=== PATIENT | female | born 1980 | race Caucasian/White ===

== ENCOUNTER 2016-12-30 11:59 | Emergency (ER) | payer BC ==
[2016-12-30 12:05] VITALS: BP 142/88
--- NOTE | 2016-12-30 12:25 | EDM.PDOC ---
ED HPI GENERAL MEDICAL PROBLEM - General Chief Complaint: Abdominal Pain Stated Complaint: lower abdominal pain Time Seen by Provider: 12/30/16 12:15 Source of Information: Reports: Patient History Limitations: Reports: No Limitations - History of Present Illness INITIAL COMMENTS - FREE TEXT/NARRATIVE: Pain started around 9 pm last night. No worse w/ pallpation. Nagging pain. HISTORY AND PHYSICAL: History of present illness: [Patient comes to the emergency room complaining of left lower quadrant abdominal pain. Symptoms began around 9 PM last evening and have continued into today. Feels that she is worsening. Pain is to her LLQ and over suprapubic area. She describes the pain as a lot of pressure and a "nagging" sensation to her pelvic area. She has not taken any medication for her pain. Had a BM yesterday that was looser than usual. Had a small BM today that was also loose, and questions if she might be contipated. Denies fever and chills. No URI or sinus symptoms. No chest pain, SOA or difficulty breathing. No nausea or vomiting. Had decreased appetite today. No blood in her stools. No burning with urination or urinary frequency. No hematuria. She denies vaginal discharge and bleeding. No new sex partners. Has been in a monogamous relationship for the last 8 years. is at the bedside and states that it is very unusual for patient to seek medical treatment as she does not like to be in medical facilities or around doctors. History of 1 in 2006. ] Review of systems: As per history of present illness and below otherwise all systems reviewed and negative. Past medical history: As per history of present illness and as reviewed below otherwise noncontributory. Surgical history: As per history of present illness and as reviewed below otherwise noncontributory. Social history: No reported history of drug or alcohol abuse. Family history: As per history of present illness and as reviewed below otherwise noncontributory. Physical exam: HEENT: Atraumatic, normocephalic. Oral mucous membranes moist. throat clear. No lymphadenopathy or pain in neck w/ palpation. Lungs: Clear to auscultation, breath sounds equal bilaterally. Heart: S1S2, regular rate and rhythm. Abdomen: Bowel sounds are normoactive. Abdomen is thin and soft and without distention. She is tender over her left lower quadrant and suprapubic area. Otherwise nontender. No masses guarding or rebound. No right upper quadrant or right lower quadrant abdominal discomfort. Negative for costovertebral tenderness. Pelvis: Stable nontender. Genitourinary: Normal-appearing external genitalia. No cervical motion tenderness. Small amount of clear discharge from cervical os. Is tender to left adnexal area on by manual exam. No masses or adnexal enlargement appreciated. Rectal: Deferred. Extremities: Atraumatic, negative for cords or calf pain. Neurovascular unremarkable. Neuro: Awake, alert, oriented. Motor and sensory unremarkable throughout. Exam nonfocal. Diagnostics: [CBC, CMP, urinalysis, urine , amylase, lipase, lactic acid, CT abd/ pelvis w/ contrast] Therapeutics: [1 liter NS, Toradol 30mg IV, Zofran 4mg IV x2, Morphine 4mg IV] Impression: [Abdominal pain Left ovarian cyst] Plan: [CT abdomen and pelvis shows 5.6 cm x 4 cm x 3.8 cm left ovarian cyst. This is reviewed with patient. She will be discharged to home with instructions for anti -inflammatories, rest, pelvic rest and pain medications. She declines hydrocodone as it upsets her stomach. Rx is written for Tramadol 50 mg #30 sig 1 by mouth every 4-6 hours as needed for pain 0 refills. Strict return precautions are reviewed w/ patient. She is instructed to follow-up with local [facility] early next week. She is in agreement with today's plan. All of her questions are answered and concerns are addressed.] Definitive disposition and diagnosis as appropriate pending reevaluation and review of above. Lower Abdominal Pain Score (Numeric/FACES): 7 - Related Data Allergies Allergy/AdvReac Type Severity Reaction Status Date / Time No Known Allergies Allergy Verified 12/30/16 12:01 Home Meds: Home Meds . [No Known Home Meds] 12/30/16 [History] Past Medical History HEENT History: Reports: None Cardiovascular History: Reports: None Respiratory History: Reports: None Gastrointestinal History: Reports: None Neurological History: Reports: None Dermatologic History: Reports: None - Infectious Disease History Infectious Disease History: Reports: Chicken Pox - Past Surgical History HEENT Surgical History: Reports: None Cardiovascular Surgical History: Reports: None Female Surgical History: Reports: Section Social & Family History - Tobacco Use Smoking Status *Q: Former Smoker Used Tobacco, but Quit: Yes Month Tobacco Last Used: 10 ED ROS GENERAL - Review of Systems Review Of Systems: ROS reveals no pertinent complaints other than HPI. ED EXAM, GI/ABD - Physical Exam Exam: See Below Course - Vital Signs Last Recorded V/S: Last Vital Signs Temp 97.7 F 12/30/16 12:01 Pulse 74 12/30/16 12:01 Resp 18 12/30/16 12:01 BP 142/88 H 12/30/16 12:01 Pulse Ox 98 12/30/16 12:01 - Orders/Labs/Meds Orders: Active Orders 24 hr Category Date Time Status Abdomen Pelvis w Cont [CT] Stat Exams 12/30/16 13:34 Taken Labs: Laboratory Tests 12/30/16 12/30/16 12/30/16 Range/Units 12:25 12:25 12:34 WBC 6.64 (4.0-11.0) K/uL RBC 4.82 (4.30-5.90) M/uL Hgb 14.7 (12.0-16.0) g/dL Hct 42.4 (36.0-46.0) % MCV 88.0 (80.0-98.0) fL MCH 30.5 (27.0-32.0) pg MCHC 34.7 (31.0-37.0) g/dL RDW Std Deviation 41.7 (28.0-62.0) fl RDW Coeff of Melisa 13 (11.0-15.0) % Plt Count 222 (150-400) K/uL MPV 10.40 (7.40-12.00) fL Neut % (Auto) 71.3 (48.0-80.0) % Lymph % (Auto) 17.3 (16.0-40.0) % [place] % (Auto) 8.7 (0.0-15.0) % Eos % (Auto) 2.4 (0.0-7.0) % Baso % (Auto) 0.3 (0.0-1.5) % Neut # (Auto) 4.7 (1.4-5.7) K/uL Lymph # (Auto) 1.2 (0.6-2.4) K/uL [place] # (Auto) 0.6 (0.0-0.8) K/uL Eos # (Auto) 0.2 (0.0-0.7) K/uL Baso # (Auto) 0.0 (0.0-0.1) K/uL Nucleated RBC % 0.0 /100WBC Nucleated RBCs # 0 K/uL Lactate (0.20-2.00) mmol/L Sodium (136-146) mmol/L Potassium (3.5-5.1) mmol/L Chloride (98-110) mmol/L Carbon Dioxide (21-31) mmol/L BUN (6.0-23.0) mg/dL Creatinine (0.6-1.5) mg/dL Est Cr Clr Drug Dosing mL/min Estimated GFR (MDRD) ml/min Glucose (60-110) mg/dL Calcium (8.8-10.8) mg/dL Total Bilirubin (0.1-1.5) mg/dL AST (5-40) IU/L ALT (8-54) IU/L Alkaline Phosphatase (40-150) Total Protein (6.0-8.0) g/dL Albumin (3.5-5.0) g/dL Globulin (2.0-3.5) g/dL Albumin/Globulin Ratio (1.3-2.8) Amylase (10-90) U/L Lipase (7-80) U/L Urine Color YELLOW Urine Appearance CLEAR Urine pH 5.5 (5.0-8.0) Ur Specific [place] <= 1.005 (1.001-1.035) Urine Protein NEGATIVE (NEGATIVE) mg/dL Urine Glucose (UA) NEGATIVE (NEGATIVE) mg/dL Urine Ketones NEGATIVE (NEGATIVE) mg/dL Urine Occult Blood NEGATIVE (NEGATIVE) Urine Nitrite NEGATIVE (NEGATIVE) Urine Bilirubin NEGATIVE (NEGATIVE) Urine Urobilinogen 0.2 (<2.0) EU/dL Ur Leukocyte Esterase NEGATIVE (NEGATIVE) Urine RBC NONE SEEN (0-2/HPF) Urine WBC 0-1 (0-5/HPF) Ur Epithelial Cells MODERATE (NONE-FEW) Amorphous Sediment RARE (NEGATIVE) Urine Bacteria RARE (NEGATIVE) Urine HCG, Qual NEGATIVE (NEGATIVE) 12/30/16 12/30/16 Range/Units 12:34 12:34 WBC (4.0-11.0) K/uL RBC (4.30-5.90) M/uL Hgb (12.0-16.0) g/dL Hct (36.0-46.0) % MCV (80.0-98.0) fL MCH (27.0-32.0) pg MCHC (31.0-37.0) g/dL RDW Std Deviation (28.0-62.0) fl RDW Coeff of Melisa (11.0-15.0) % Plt Count (150-400) K/uL MPV (7.40-12.00) fL Neut % (Auto) (48.0-80.0) % Lymph % (Auto) (16.0-40.0) % [place] % (Auto) (0.0-15.0) % Eos % (Auto) (0.0-7.0) % Baso % (Auto) (0.0-1.5) % Neut # (Auto) (1.4-5.7) K/uL Lymph # (Auto) (0.6-2.4) K/uL [place] # (Auto) (0.0-0.8) K/uL Eos # (Auto) (0.0-0.7) K/uL Baso # (Auto) (0.0-0.1) K/uL Nucleated RBC % /100WBC Nucleated RBCs # K/uL Lactate 1.2 (0.20-2.00) mmol/L Sodium 137 (136-146) mmol/L Potassium 3.8 (3.5-5.1) mmol/L Chloride 109 (98-110) mmol/L Carbon Dioxide 21 (21-31) mmol/L BUN 9 (6.0-23.0) mg/dL Creatinine 0.9 (0.6-1.5) mg/dL Est Cr Clr Drug Dosing 77.01 mL/min Estimated GFR (MDRD) > 60.0 ml/min Glucose 102 (60-110) mg/dL Calcium 9.3 (8.8-10.8) mg/dL Total Bilirubin 0.6 (0.1-1.5) mg/dL AST 13 (5-40) IU/L ALT 10 (8-54) IU/L Alkaline Phosphatase 55 (40-150) Total Protein 7.3 (6.0-8.0) g/dL Albumin 4.2 (3.5-5.0) g/dL Globulin 3.1 (2.0-3.5) g/dL Albumin/Globulin Ratio 1.4 (1.3-2.8) Amylase 54 (10-90) U/L Lipase 18 (7-80) U/L Urine Color Urine Appearance Urine pH (5.0-8.0) Ur Specific [place] (1.001-1.035) Urine Protein (NEGATIVE) mg/dL Urine Glucose (UA) (NEGATIVE) mg/dL Urine Ketones (NEGATIVE) mg/dL Urine Occult Blood (NEGATIVE) Urine Nitrite (NEGATIVE) Urine Bilirubin (NEGATIVE) Urine Urobilinogen (<2.0) EU/dL Ur Leukocyte Esterase (NEGATIVE) Urine RBC (0-2/HPF) Urine WBC (0-5/HPF) Ur Epithelial Cells (NONE-FEW) Amorphous Sediment (NEGATIVE) Urine Bacteria (NEGATIVE) Urine HCG, Qual (NEGATIVE) Meds: Medications Discontinued Medications Generic Name Dose Route Start Last Admin Trade Name Freq PRN Reason Stop Dose Admin Sodium Chloride 1,000 mls @ 999 mls/hr 12/30/16 12:59 12/30/16 13:18 Normal Saline IV 12/30/16 13:59 999 mls/hr STAT ONE Administration Iopamidol 85 ml 12/30/16 14:22 12/30/16 14:23 Isovue-370 (76%) IVPUSH 12/30/16 14:23 85 ml ONETIME STA Administration Ketorolac Tromethamine 30 mg 12/30/16 12:59 12/30/16 13:21 Toradol IVPUSH 12/30/16 13:00 30 mg ONETIME ONE Administration Morphine Sulfate 4 mg 12/30/16 13:53 12/30/16 15:11 Morphine IVPUSH 12/30/16 13:54 4 mg ONETIME ONE Administration Ondansetron HCl 4 mg 12/30/16 12:59 12/30/16 13:18 Zofran IVPUSH 12/30/16 13:00 4 mg ONETIME ONE Administration Ondansetron HCl 4 mg 12/30/16 13:53 12/30/16 15:10 Zofran IVPUSH 12/30/16 13:54 4 mg ONETIME ONE Administration Departure - Departure Time of Disposition: 15:15 Disposition: Home, Self-Care 01 Condition: Good Clinical Impression: Abdominal pain, Left ovarian cyst - Discharge Information Instructions: Ovarian Cyst Referrals: PCP,None [Primary Care Provider] - Forms: ED Department Discharge Additional Instructions: The following information is given to patients seen in the emergency department who are being discharged to home. This information is to outline your options for follow-up care. We provide all patients seen in our emergency department with a follow-up referral. The need for follow-up, as well as the timing and circumstances, are variable depending upon the specifics of your emergency department visit. If you don't have a primary care physician on staff, we will provide you with a referral. We always advise you to contact your personal physician following an emergency department visit to inform them of the circumstance of the visit and for follow-up with them and/or the need for any referrals to a consulting specialist. The emergency department will also refer you to a specialist when appropriate. This referral assures that you have the opportunity for follow-up care with a specialist. All of these measure are taken in an effort to provide you with optimal care, which includes your follow-up. Under all circumstances we always encourage you to contact your private physician who remains a resource for coordinating your care. When calling for follow-up care, please make the office aware that this follow-up is from your recent emergency room visit. If for any reason you are refused follow-up, please contact the [facility] emergency department at and asked to speak to the emergency department charge nurse. [facility] Primary care - Women's Health [address] [place] [id number] Follow-up with the above list clinic in the next 48-72 hours. Take anti-inflammatories such as ibuprofen. Take tramadol as needed for severe pain. Return to ER as needed as discussed. - My Orders Last 24 Hours: My Active Orders 12/30/16 13:34 Abdomen Pelvis w Cont [CT] Stat - Assessment/Plan Last 24 Hours: My Active Orders 12/30/16 13:34 Abdomen Pelvis w Cont [CT] Stat
[2016-12-30] MEDS ORDERED: Sodium Chloride 0.9% 1,000 ML IV ONE (12:59)
[2016-12-30] MEDS ORDERED: Ketorolac 30 MG/ML SDV IVPUSH ONE (12:59)
[2016-12-30] MEDS ORDERED: Ondansetron 4 MG/2 ML SDV IVPUSH ONE ×2 (12:59→13:53)
[2016-12-30 13:12] LABS: CHLORIDE,CL 109 mmol/L (98-110); SODIUM,NA 137 mmol/L (136-146)
[2016-12-30] MEDS ORDERED: Morphine 2 MG/ML Syringe IVPUSH ONE (13:53)
[2016-12-30] MEDS ORDERED: Iopamidol 755 Mg/ML 100 ML Bottle IVPUSH STA (14:22)
--- NOTE | 2017-01-01 15:17 | CT ---
EXAM DATE: 12/30/16 PATIENT'S AGE: 36 Patient: SHANKAR SEARS Facility: [place], [place] Site . Site : 1980 Study: CT Abdomen/Pelvis [id number] 2:22:29 PM Ordering Physician: Doctor Ortiz Final Report: INDICATION: Left lower abdominal pain. Technique: Volumetric CT acquisition of the abdomen and pelvis following the administration of 85 mL Isovue-370 intravenous contrast. Multiplanar reconstruction. Findings : The lung bases are clear. The liver, spleen, pancreas, adrenal glands, gallbladder, and biliary tract are unremarkable. Kidneys normal in size, shape, and position. Both kidneys are functioning. No hydronephrosis. No renal masses or focal parenchymal abnormalities. Ureters normal in course and caliber. Abdominal aorta normal in caliber. No para-aortic or retrocrural lymphadenopathy. Normal bowel gas pattern. No inflammatory changes involving the bowel. The uterus is present. 5.6 cm x 4.0 cm x 3.8 cm left ovarian cyst. No free fluid in the abdomen and pelvis. No acute bony abnormality. Impression: 5.6 cm x 4.0 cm x 3.8 cm left ovarian cyst. Please note that all CT scans at this facility use dose modulation, iterative reconstruction, and/or weight-based dosing when appropriate to reduce radiation dose to as low as reasonably achievable. Dictated by Sandra Lopez MD @ Dec 30 2016 2:36PM (Electronic Signature) Report Signed by Proxy. [facility]ENTER[facility]ameka
== END 2016-12-30 15:35 | disposition home or self-care (01) ==
LOC: MW.ED 11:59
DX: N83.202 Unspecified ovarian cyst, left side (principal); Z87.891 Personal history of nicotine dependence
CPT/HCPCS: 36415; 74177; 80053; 81001; 81025; 82150; 83605; 83690; 85025; 96361; 96374; 96375; 96376; 99284; J1885; J2270; J2405; J7040; Q9967; 99283